=== PATIENT | male | born 1945 | race Caucasian/White ===

== ENCOUNTER 2020-06-23 14:06 | Emergency (ER) | payer OTHER ==
[~2020-06-23] VITALS: Ht 172.7 cm; Wt 61.7 kg
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
[~2020-06-23 14:06] MED LIST: ADULT LOW DOSE81 MG PO; LISINOPRIL40 MG PO; METOPROLOL PO; NITROGLYCERIN0.4 MG PO; PROAIR HFA8.5 GM; SIMVASTIN PO; SYMBICORT160 MCG/4.
[2020-06-23] MEDS ORDERED: PAIN RELIEF650 MG PO (14:20)
[2020-06-23] MEDS ORDERED: BUSPIRONE HCL5 MG PO (14:21)
[2020-06-23] MEDS ORDERED: NORVASC5 MG PO (14:21)
[2020-06-23] MEDS ORDERED: CLONAZEPAM 0.50.5 M1 PO (14:22)
[2020-06-23] MEDS ORDERED: SERTRALINE HCL100 MG PO (14:24)
[2020-06-23] MEDS ORDERED: TRAMADOL 50 MG50 MG PO (14:24)
[2020-06-23] MEDS ORDERED: DESYREL150 MG PO (14:25)
[2020-06-23 14:57] LABS: ABSOLUTE NEUTROPHILS 7.6 thou/uL (1.4-8.2); BASOPHILS 0.8 % (0.0-2.0); EOSINOPHILS 1.1 % (0.0-3.0); HEMATOCRIT 34.9 % (42.0-52.0); HEMOGLOBIN 11.5 gm/dL (14.0-18.0); LYMPHOCYTES 9.5 % (24.0-44.0); MCH 29.9 pg (26.0-34.0); MCV 90.5 fL (80.0-100.0); PLATELET COUNT 149 thou/uL (150-400); POLYS 76.6 % (36.0-66.0); RBC 3.86 mil/uL (4.50-6.00); RDW 12.9 % (10.5-14.5); WBC 9.9 thou/uL (4.0-11.0)
[2020-06-23 15:07] LABS: ANION GAP 1 mmol/L (7-16); BUN 16 mg/dL (7-18); CHLORIDE 100 mmol/L (98-107); CO2 42 mmol/L (21-32); CREATININE 0.7 mg/dL (0.7-1.3); GLUCOSE 83 mg/dL (74-106); POTASSIUM 3.8 mmol/L (3.5-5.1); SODIUM 143 mmol/L (136-145)
[2020-06-23 15:17] LABS: ALBUMIN 3.4 g/dL (3.4-5.0); DIRECT BILIRUBIN < 0.1 mg/dL (<0.1-0.2); SALICYLATE < 2.8 mg/dL (2.8-20.0); SGOT 43 U/L (15-37); SGPT 27 U/L (16-63); TOTAL BILIRUBIN 0.3 mg/dL (0.2-1.0); TOTAL PROTEIN 6.6 g/dL (6.4-8.2); TROPONIN-I <0.06 ng/mL (<0.06)
[2020-06-23 15:49] LABS: URINE BILIRUBIN NEGATIVE (Negative); URINE BLOOD NEGATIVE (Negative); URINE CLARITY CLEAR; URINE COLOR YELLOW; URINE GLUCOSE-RANDOM* NEGATIVE (Negative); URINE KETONES 1+ (Negative); URINE LEUKOCYTES-REFLEX NEGATIVE (Negative); URINE NITRITE-REFLEX NEGATIVE (Negative); URINE PROTEIN (DIPSTICK) TRACE (Negative); URINE SPECIFIC GRAVITY 1.025 (1.005-1.035); URINE UROBILINOGEN 0.2 E.U./dl (0.2-1.0)
[2020-06-23 15:59] LABS: AMP/METHAMP Negative (Negative); BARBITURATES Negative (Negative); BENZODIAZEPINES POSITIVE (Negative); COCAINE Negative (Negative); METHADONE Negative (Negative); OPIATES Negative (Negative); PCP Negative (Negative)
--- NOTE | 2020-06-23 16:28 | EKG ---
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 : 1945 Requested By: Kevin Otero Order Number: [id number] MD: Romero Flores Measurements Intervals [place] Rate: 86 P: 81 VT: 160 QRS: 83 QRSD: 106 T: 70 QT: 378 QTc: 452 Interpretive Statements Sinus rhythm Probable left atrial enlargement Borderline right axis deviation Compared to ECG 05/23/2012 10:47:11 No significant changes Electronically Signed On 06-23-2020 16:27:56 CDT by Romero Flores [email or web address] <ELECTRONICALLY SIGNED> By: Romero Flores MD, [facility] 06/23/20 1627 1449 1449 Romero Flores MD, FACC /EPI
[2020-06-23 19:40] VITALS: BP 160/72
== END 2020-06-23 19:42 ==
LOC: ER 14:06
PROVIDERS: Emergency Medicine
DX: F22 Delusional disorders (principal); Z20.822 Contact with and (suspected) exposure to COVID-19; J44.9 Chronic obstructive pulmonary disease, unspecified; F41.9 Anxiety disorder, unspecified; E78.5 Hyperlipidemia, unspecified; I10 Essential (primary) hypertension; F17.210 Nicotine dependence, cigarettes, uncomplicated; Z79.82 Long term (current) use of aspirin; Z79.899 Other long term (current) drug therapy; Z86.73 Personal history of transient ischemic attack (TIA), and cerebral infarction without residual deficits; Z98.890 Other specified postprocedural states